=== PATIENT | female | born 1960 | race Caucasian/White ===

== ENCOUNTER 2024-08-03 17:35 | Emergency (ER) | payer SELFPAY ==
[~2024-08-03] VITALS: Ht 170.2 cm; Wt 49.9 kg
[2024-08-03 17:50] VITALS: TEMP 98.4
[2024-08-03 18:30] LABS: BASOPHILS % 0.5 % (0.0-1.0); EOSINOPHILS # (AUTO) 0.1 (0.0-0.4); EOSINOPHILS % 1.6 % (0.0-6.0); LYMPHOCYTES % 12.9 % (18.0-39.1); MEAN CORPUSCULAR HGB CONC 34.1 g/dL (31-35); MEAN CORPUSCULAR VOLUME 93.8 fL (81-99); MONOCYTES # (AUTO) 0.5 (0.2-0.8); MONOCYTES % 6.8 % (4.4-11.3); NEUTROPHILS # (AUTO) 5.7 (2.1-6.9); NEUTROPHILS % 78.1 % (38.7-80.0); PLATELET COUNT 260 x10e3/uL (140-360); RED BLOOD COUNT 4.37 x10e6/uL (3.6-5.1); RED CELL DISTRIBUTION WIDTH 12.4 % (11.7-14.4); WHITE BLOOD COUNT 7.34 x10e3/uL (4.8-10.8)
[2024-08-03 19:00] LABS: ALBUMIN 3.5 g/dL (3.5-5.0); ANION GAP 14.1 mmol/L (8-16); BILIRUBIN,TOTAL 0.4 mg/dL (0.2-1.2); CREATININE, SERUM 0.81 mg/dL (0.57-1.11); POTASSIUM 4.1 mmol/L (3.5-5.1)
[2024-08-03 19:06] VITALS: PULSE 75; RESP 12; O2SAT 97
[2024-08-03] MEDS: ONDANSETRON HCL INJ 2MG/ML 2ML 2 MG/ML VIAL IV STA (19:06)
[2024-08-03] MEDS: Morphine 4mg INJECTION 4 MG/ML INJ IV ONE (19:06)
[2024-08-03] MEDS ORDERED: VALTREX1000 MG PO (20:08)
[2024-08-03] MEDS ORDERED: HYDROCODON-ACE1 EA12 PO (20:08)
[2024-08-03] MEDS ORDERED: NEURONTIN300 MG PO (20:08)
== END 2024-08-03 20:26 | disposition home or self-care (01) ==
LOC: ER 18:22
DX: B02.29 Other postherpetic nervous system involvement (principal); M54.14 Radiculopathy, thoracic region
CPT/HCPCS: 36415; 71045; 80053; 84484; 85025; 93005; 99284; J2270; J2405